=== PATIENT | female | born 1950 | race Caucasian/White ===

== ENCOUNTER 2017-07-17 09:22 | Emergency (ER) | payer MEDICARE, BC, OTHER ==
[2017-07-17 10:54] LABS: HEMATOCRIT 40.9 % (36.0-47.0); HEMOGLOBIN 13.8 g/dl (12.0-15.5); MEAN CORPUSCULAR HEMOGLOBIN 29.2 pg (27.0-33.0); MEAN CORPUSCULAR HGB CONC 33.7 g/dl (32.0-36.5); MEAN CORPUSCULAR VOLUME 86.7 fl (80.0-96.0); PLATELET COUNT, AUTOMATED 195 10^3/uL (150-450); RED BLOOD COUNT 4.72 10^6/uL (4.00-5.40); RED CELL DISTRIBUTION WIDTH 12.1 % (11.5-14.5); WHITE BLOOD COUNT 6.5 10^3/uL (4.0-10.0)
[2017-07-17 11:14] LABS: ANION GAP 6 MEQ/L (8-16); BLOOD UREA NITROGEN 11 MG/DL (7-18); CALCIUM LEVEL 9.4 MG/DL (8.8-10.2); CARBON DIOXIDE LEVEL 29 MEQ/L (21-32); CHLORIDE LEVEL 109 MEQ/L (98-107); CREATININE FOR GFR 0.72 MG/DL (0.55-1.30); GLOMERULAR FILTRATION RATE > 60.0 (>45); GLUCOSE, FASTING 99 MG/DL (70-100); SODIUM LEVEL 144 MEQ/L (136-145)
[2017-07-17 11:23] LABS: VITAMIN B12 LEVEL 1056 PG/ML (247-911)
== END 2017-07-17 11:54 | disposition home or self-care (01) ==
LOC: M ED 09:22
DX: G44.209 Tension-type headache, unspecified, not intractable (principal); I10 Essential (primary) hypertension; E78.5 Hyperlipidemia, unspecified; Z82.49 Family history of ischemic heart disease and other diseases of the circulatory system; Z79.82 Long term (current) use of aspirin; Z79.899 Other long term (current) drug therapy; Z88.8 Allergy status to other drugs, medicaments and biological substances
CPT/HCPCS: 70450

== ENCOUNTER → 2021-09-06 | Outpatient (CLI) | payer MEDICARE, BC, OTHER ==
[~2021-09-06] MED LIST: ASPI81TA86 PO; FLAXOIL3 PO; VITA-114 PO; VITA100T51 PO
== END ==
LOC: M WHC 13:33
PROVIDERS: ATTEND Family Medicine
DX: Z12.31 Encounter for screening mammogram for malignant neoplasm of breast (principal); Z78.0 Asymptomatic menopausal state

== ENCOUNTER 2023-07-27 08:57 | Emergency (ER) | payer MEDICARE, OTHER ==
[~2023-07-27] VITALS: Ht 165.1 cm; Wt 70.3 kg
[2023-07-27] MEDS ORDERED: LOSA25TA13 (09:12)
[2023-07-27] MEDS ORDERED: [UNRECOGNIZED DRUG - OTHER] (09:12)
[2023-07-27] MEDS ORDERED: ROSU10TA61 (09:12)
[2023-07-27] MEDS ORDERED: CENT1TAB PO (09:12)
[2023-07-27 11:57] VITALS: BP 152/64; TEMP 98.3; O2SAT 100
== END 2023-07-27 12:39 | disposition home or self-care (01) ==
LOC: M ED 08:57
DX: S83.92XA Sprain of unspecified site of left knee, initial encounter (principal); M17.12 Unilateral primary osteoarthritis, left knee; M25.762 Osteophyte, left knee; E78.5 Hyperlipidemia, unspecified; E55.9 Vitamin D deficiency, unspecified; I10 Essential (primary) hypertension; Z88.6 Allergy status to analgesic agent; Z79.811 Long term (current) use of aromatase inhibitors; Z79.899 Other long term (current) drug therapy; Y92.009 Unspecified place in unspecified non-institutional (private) residence as the place of occurrence of the external cause; Y93.89 Activity, other specified; Y99.9 Unspecified external cause status

== ENCOUNTER → 2023-12-04 | Outpatient (CLI) | payer BC, MEDICARE ==
[~2023-12-04] MED LIST changes: +CENT1TAB PO; +LOSA25TA13; +ROSU10TA61; +[UNRECOGNIZED DRUG - OTHER]
== END ==
LOC: M WHC 08:32
PROVIDERS: ATTEND Family Medicine
DX: Z12.31 Encounter for screening mammogram for malignant neoplasm of breast (principal)

== ENCOUNTER → 2024-10-26 | Outpatient (REF) | payer MEDICARE, BC | LOC: M SFHCDERM 13:17 | PROVIDERS: ATTEND Physician Assistant | DX: C44.619 Basal cell carcinoma of skin of left upper limb, including shoulder (principal) ==

== ENCOUNTER → 2024-11-08 | Outpatient (CLI) | payer MEDICARE, BC | LOC: M PLALAB 08:12 | PROVIDERS: ATTEND Family Medicine | DX: M50.90 Cervical disc disorder, unspecified, unspecified cervical region (principal); M47.812 Spondylosis without myelopathy or radiculopathy, cervical region ==

== ENCOUNTER → 2025-01-11 | Outpatient (REF) | payer MEDICARE, OTHER | LOC: M SFHCDERM 13:03 | PROVIDERS: ATTEND Physician Assistant | DX: C44.529 Squamous cell carcinoma of skin of other part of trunk (principal) ==

== ENCOUNTER → 2025-02-10 | Outpatient (REF) | payer MEDICARE, OTHER ==
[~2025-02-10] MED LIST changes: -ROSU10TA61; +ROSU10TA90
== END ==
LOC: M SFHCDERM 18:31
PROVIDERS: ATTEND Physician Assistant
DX: D09.9 Carcinoma in situ, unspecified (principal)